=== PATIENT | female | born 1965 | race African-American/Black ===

== ENCOUNTER 2018-06-19 07:24 | Day surgery (SDC) | payer BC, OTHER ==
[2018-06-12 13:05] LABS: APPEARANCE,URINE CLEAR; BILIRUBIN,URINE NEGATIVE (NEGATIVE); COLOR,URINE YELLOW; GLUCOSE, URINE NEGATIVE (NEGATIVE); KETONES,URINE NEGATIVE (NEGATIVE); LEUKOCYTE ESTERASE,URINE NEGATIVE (NEGATIVE); NITRITE,URINE NEGATIVE (NEGATIVE); PROTEIN,URINE NEGATIVE (NEGATIVE); URINE SPECIFIC GRAVITY 1.015; UROBILINOGEN,URINE NEGATIVE mg/dL (<2.0)
[2018-06-12 13:10] LABS: HEMATOCRIT 39.1 % (36.0-47.0); HEMOGLOBIN 13.4 g/dL (12.0-15.5); MEAN CORPUSCULAR HEMOGLOBIN 31.1 pg (27.0-33.4); MEAN CORPUSCULAR HGB CONC 34.1 g/dL (32.0-36.0); MEAN CORPUSCULAR VOLUME 91 fl (80-97); PLATELET COUNT 207 10^3/uL (150-450); RED BLOOD COUNT 4.29 10^6/uL (3.72-5.28); RED CELL DISTRIBUTION WIDTH 12.9 % (11.5-14.0); WHITE BLOOD COUNT 4.9 10^3/uL (4.0-10.5)
--- NOTE | 2018-06-12 13:12 | EKG REPORT ---
SEVERITY:- ABNORMAL ECG - SINUS RHYTHM CONSIDER LEFT VENTRICULAR HYPERTROPHY : Confirmed by: Carrilol Ng MD 12-Jun-2018 13:10:40
--- NOTE | 2018-06-12 13:17 | RADIOLOGY REPORT (SQ) ---
EXAM DESCRIPTION: CHEST PA/LATERAL COMPLETED DATE/TIME: 06/12/2018 12:36 pm REASON FOR STUDY: PRE-OP COMPARISON: None. EXAM PARAMETERS: NUMBER OF VIEWS: two views TECHNIQUE: Digital Frontal and Lateral radiographic views of the chest acquired. RADIATION DOSE: NA LIMITATIONS: none FINDINGS: LUNGS AND PLEURA: No opacities, masses or pneumothorax. No pleural effusion. MEDIASTINUM AND HILAR STRUCTURES: No masses or contour abnormalities. HEART AND VASCULAR STRUCTURES: Heart normal size. No evidence for failure. BONES: No acute findings. HARDWARE: None in the chest. OTHER: No other significant finding. IMPRESSION: NO SIGNIFICANT RADIOGRAPHIC FINDING IN THE CHEST. TECHNICAL DOCUMENTATION: JOB ID: [id number] [employer]- All Rights Reserved Reading location - IP/workstation name: [email or web address]
[2018-06-12 13:37] LABS: ALANINE AMINOTRANSFERASE 35 U/L (9-52); ALBUMIN 4.5 g/dL (3.5-5.0); ALKALINE PHOSPHATASE 109 U/L (38-126); ANION GAP 8 (5-19); ASPARTATE AMINO TRANSFERASE 29 U/L (14-36); BILIRUBIN,DIRECT 0.2 mg/dL (0.0-0.4); BILIRUBIN,TOTAL 0.4 mg/dL (0.2-1.3); BLOOD UREA NITROGEN 11 mg/dL (7-20); CALCIUM 9.4 mg/dL (8.4-10.2); CARBON DIOXIDE 30 mmol/L (22-30); CHLORIDE 105 mmol/L (98-107); GLUCOSE 99 mg/dL (75-110); POTASSIUM 4.9 mmol/L (3.6-5.0); TOTAL PROTEIN 7.6 g/dL (6.3-8.2)
[~2018-06-19 07:24] MED LIST: ACETAMINOPHEN 1,000 MG/100 ML RTUPB IV ONE; CEFAZOLIN 1 GM/D5W RTU 1 GM/50 ML RTUPB IV ONE; CEFAZOLIN 1 GM/D5W RTU 1 GM/50 ML RTUPB IV PRN; FENTANYL CITRATE INJ/PF 100 MCG/2 ML AMPUL ONE; HYDROMORPHONE HCL INJ/PF 2 MG/ML AMPULE ONE; LACTATED RINGERS 1000 ML IV PRN; LIDOCAINE 0.5% INJ-PF (5 MG/ML) 50 ML SDV SUBCUT PRN; MIDAZOLAM 2 MG/2 ML INJ ONE; PROPOFOL INJ 200 MG/20 ML VIAL IV ONE
[2018-06-19] MEDS ORDERED: BUPIVACAINE HCL 0.25 % INJ/PF (2.5 MG/1 ML) 30 ML VIAL ONE (08:19)
[2018-06-19] MEDS ORDERED: SUCCINYLCHOLINE CHLORIDE INJ 200 MG/10 ML VIAL ONE (08:54)
[2018-06-19] MEDS ORDERED: ROCURONIUM BROMIDE INJ 50 MG/5 ML VIAL IV ONE (08:54)
[2018-06-19] MEDS ORDERED: DEXAMETHASONE SOD PHOSPHATE INJ 4 MG/1 ML VIAL ONE (08:54)
[2018-06-19] MEDS ORDERED: KETOROLAC TROMETHAMINE 60 MG/2 ML SDV ONE (08:54)
[2018-06-19] MEDS ORDERED: ONDANSETRON HCL INJ/PF 4 MG/2 ML SDV ONE (08:54)
[2018-06-19] MEDS ORDERED: MEPERIDINE HCL/PF INJ 25 MG/1 ML DISP.SYRIN IV PRN (09:58)
[2018-06-19] MEDS ORDERED: MORPHINE SULFATE 10 MG/ML INJ IV PRN (09:58)
[2018-06-19] MEDS ORDERED: ONDANSETRON HCL INJ/PF 4 MG/2 ML SDV IV PRN (09:58)
[2018-06-19] MEDS ORDERED: PROMETHAZINE HCL INJ 25 MG/1 ML VIAL IV PRN (09:58)
[2018-06-19] MEDS ORDERED: DIPHENHYDRAMINE HCL 50 MG/ML VIAL IV PRN (09:58)
[2018-06-19] MEDS ORDERED: FENTANYL CITRATE INJ/PF 100 MCG/2 ML AMPUL IV PRN ×3 (09:58)
--- NOTE | 2018-06-19 11:27 | OPERATIVE REPORT E ---
Operative Report NAME: LILI SUTTON : 1965 AGE: 52Y DATE OF SURGERY: 06/19/2018 ROOM: PREOPERATIVE DIAGNOSIS: METROMENORRHAGIA WITH FIBROIDS. POSTOPERATIVE DIAGNOSIS: METROMENORRHAGIA WITH FIBROIDS. OPERATION: Total hysterectomy, robotic-assisted with bilateral salpingectomy. SURGEON: Jamee WILLSON M.D. ANESTHESIA: General. ESTIMATED BLOOD LOSS: Less than 50 mL. TISSUE REMOVED: Uterus and tubes. PROCEDURE: The patient was placed in the dorsal lithotomy position, prepped and draped in the usual sterile fashion. A speculum was placed. The cervix was visualized and grasped with a single-tooth tenaculum. Uterus sounded to a depth of 11 cm. A uterine manipulator was placed per protocol. Attention was turned to the abdomen where a subumbilical midline incision was made. Trocar was introduced with introduction of the laparoscope. Visualization of tubes, uterus and ovaries: There were 2 large fibroids in the lower uterine segment on the left and the uterus appeared to be large and boggy. A second puncture was made lateral to the first and a 5 was introduced, third lateral to the midline on the left and a 5 was introduced and then an accessory port introduced at the superior iliac crest. The robot was docked in usual fashion. Using monopolar and bipolar cautery the left tube was removed and cauterized along the mesosalpinx. This was down to the round ligament on the left, each pedicle being divided and cauterized. This was repeated on the right. The bladder flap was created with sharp dissection. The uterus and tubes were then removed by cauterizing circumferentially around the cervix. The cuff was then closed with a running suture of 0-Vicryl. The pelvis irrigated with normal saline. Hemostasis was noted. Robot was then docked in usual fashion. The trocars were removed, the incisions of supraumbilical and the accessory port were closed using 0 Vicryl to close the fascia and 4-0 Vicryl subcutaneously. The 2 punctures were closed with 4-0 Vicryl subcutaneous. All counts were correct. She tolerated it well. Urine remained clear throughout the procedure. She was taken to the recovery room in good condition. DICTATING PHYSICIAN: Jamee WILLSON M.D. [id number] PHY#: [id number] ID: [id number] JOB#: [id number] ACCT: [id number] cc:Jamee WILLSON M.D. >
[2018-06-19] MEDS ORDERED: OXYCODONE-ACETAMINOPHEN 5-325 MG TABLET PO PRN ×2 (11:39→12:30)
[2018-06-19] MEDS ORDERED: ONDANSETRON HCL 8 MG TABLET PO PRN (11:41)
[2018-06-19] MEDS ORDERED: (PENDING PHARMACY ID) (Metformin Hcl [Metformin Hcl Er] 2,000 MG) PO SCH (11:45)
[2018-06-19] MEDS ORDERED: PROMETHAZINE HCL INJ 25 MG/1 ML VIAL ONE (12:10)
[2018-06-19] MEDS ORDERED: LEVOTHYROXINE SODIUM 0.112 MG TABLET PO SCH (13:00)
--- NOTE | 2018-06-19 13:47 | OPERATIVE REPORT E ---
Operative Report NAME: LILI SUTTON : 1965 AGE: 52Y DATE OF SURGERY: 06/19/2018 ROOM: 223 ADDENDUM: Following closure of the abdominal incisions, it was noted that there was a small tear in the midline of the vagina from where the uterus had been removed. This was repaired using 2-0 Vicryl in a running fashion. DICTATING PHYSICIAN: Jamee WILLSON M.D. [id number] PHY#: [id number] ID: [id number] JOB#: [id number] ACCT: [id number] cc:Jamee WILLSON M.D. >
[2018-06-19] MEDS: IBUPROFEN 800 MG TABLET PO SCH ×2 (14:46→21:53)
[2018-06-19] MEDS ORDERED: METFORMIN HCL 500 MG TABLET PO SCH (16:00)
[2018-06-19 20:18] VITALS: BP 140/73
[2018-06-20] MEDS ORDERED: METOPROLOL SUCCINATE 25 MG TAB.SR.24H PO SCH (10:00)
== END 2018-06-19 22:15 | disposition home or self-care (01) ==
LOC: OROUT 07:24 → 2S 12:39 → OROUT 22:15
PROVIDERS: ATTEND Obstetrics & Gynecology Gynecology
DX: D25.1 Intramural leiomyoma of uterus (principal); D25.0 Submucous leiomyoma of uterus; D25.2 Subserosal leiomyoma of uterus; N93.9 Abnormal uterine and vaginal bleeding, unspecified; N84.0 Polyp of corpus uteri; I10 Essential (primary) hypertension; E11.9 Type 2 diabetes mellitus without complications; Z79.899 Other long term (current) drug therapy; Z79.84 Long term (current) use of oral hypoglycemic drugs
CPT/HCPCS: 58573; S2900; 36415; 71046; 80053; 81001; 82962; 840; 85027; 86850; 86900; 86901; 88307; 93005; 93010; J0131; J0330; J0690; J1100; J1170; J1885; J2250; J2405; J2550; J2704; J3010; J3490; J7120

== ENCOUNTER → 2019-03-06 | Outpatient (CLI) | payer SELFPAY ==
[2019-03-06 14:21] LABS: INTERNATIONAL RATION (INR) 1.02; PARTIAL THROMBOPLASTIN TIME 31.9 SEC (23.5-35.8); PROTHROMBIN TIME 13.4 SEC (11.4-15.4)
[2019-03-06 14:23] LABS: ABSOLUTE LYMPHOCYTES (AUTO) 2.2 10^3/uL (0.5-4.7); ABSOLUTE MONOCYTES (AUTO) 0.4 10^3/uL (0.1-1.4); BASOPHILS % (AUTO) 0.1 % (0-2); EOSINOPHILS % (AUTO) 0.1 % (0-6); HEMATOCRIT 39.6 % (36.0-47.0); HEMOGLOBIN 13.4 g/dL (12.0-15.5); LYMPHOCYTES % (AUTO) 38.9 % (13-45); MEAN CORPUSCULAR HEMOGLOBIN 30.5 pg (27.0-33.4); MEAN CORPUSCULAR HGB CONC 33.9 g/dL (32.0-36.0); MEAN CORPUSCULAR VOLUME 90 fl (80-97); MONOCYTES % (AUTO) 7.7 % (3-13); PLATELET COUNT 204 10^3/uL (150-450); SEGMENTED NEUTROPHILS % (AUTO) 53.2 % (42-78); TOTAL CELLS COUNTED % (AUTO) 100 %; WHITE BLOOD COUNT 5.7 10^3/uL (4.0-10.5)
== END ==
LOC: LAB 12:01
PROVIDERS: ATTEND Obstetrics & Gynecology Gynecology
DX: R16.1 Splenomegaly, not elsewhere classified (principal)
CPT/HCPCS: 36415; 85025; 85610; 85730